=== PATIENT | male | born 1980 | race Caucasian/White ===

== ENCOUNTER → 2020-05-20 | Outpatient (CLI) | payer BC | LOC: COL.LAB 10:46 | DX: Z20.828 Contact with and (suspected) exposure to other viral communicable diseases (principal) ==

== ENCOUNTER → 2020-07-03 | Outpatient (CLI) | payer BC | LOC: COL.RAD 12:36 | DX: M25.452 Effusion, left hip (principal); M79.662 Pain in left lower leg ==

== ENCOUNTER 2021-04-13 10:52 | Emergency (ER) | payer OTHER ==
[~2021-04-13] VITALS: Ht 177.8 cm; Wt 89.5 kg
[2021-04-13 12:33] VITALS: BP 126/82; PULSE 68
== END 2021-04-13 12:33 | disposition home or self-care (01) ==
LOC: COL.ER 10:52
DX: M54.9 Dorsalgia, unspecified (principal); R51.9 Headache, unspecified; Z87.891 Personal history of nicotine dependence; V43.52XA Car driver injured in collision with other type car in traffic accident, initial encounter